=== PATIENT | male | born 1970 | race Caucasian/White ===

== ENCOUNTER 2016-11-13 14:41 | Emergency (ER) | payer OTHER ==
[2016-11-13 15:09] LABS: RED BLOOD COUNT 6.06 M/UL (4.20-5.50); WHITE BLOOD COUNT 19.3 K/UL (4.5-11.0)
[2016-11-13 15:50] LABS: BUN/CREATININE RATIO 14 (0-10)
== END 2016-11-13 19:28 | disposition home or self-care (01) ==
LOC: ER1 14:41
PROVIDERS: Emergency Medicine
DX: K29.20 Alcoholic gastritis without bleeding (principal); F10.10 Alcohol abuse, uncomplicated; F17.210 Nicotine dependence, cigarettes, uncomplicated
CPT/HCPCS: 74022; 80053; 81001; 82150; 83690; 84484; 85025; 87086; 93005; 99282; J2270; J2405; J7030

== ENCOUNTER 2021-12-09 14:12 | Emergency (ER) | payer OTHER ==
[~2021-12-09 14:12] MED LIST: NAPROSYN500 MG PO
[2021-12-09] MEDS ORDERED: SILVADENE20 GM TP (15:30)
== END 2021-12-09 15:35 | disposition home or self-care (01) ==
LOC: ER1 14:12
DX: T20.27XA Burn of second degree of neck, initial encounter (principal); T22.20XA Burn of second degree of shoulder and upper limb, except wrist and hand, unspecified site, initial encounter; F17.200 Nicotine dependence, unspecified, uncomplicated; Z23 Encounter for immunization; T31.0 Burns involving less than 10% of body surface
CPT/HCPCS: 16020; 90471; 90714; 99283